=== PATIENT | female | born 1985 | race Caucasian/White ===

== ENCOUNTER 2017-04-13 04:11 | Emergency (ER) | payer MEDICAID ==
[2017-04-13] MEDS ORDERED: Albuterol/Ipratropium Neb 3 ML AERS HHN ONE ×2 (04:36→04:44)
--- NOTE | 2017-04-13 04:48 | ED Physician Chart ---
ED Chief Complaint/HPI - Patient Information Date Seen:: 04/13/17 Time Seen:: 04:42 Chief Complaint:: Cough for 2 weeks History of Present Illness:: 31 yo female cough for 2 weeks, non-productive, chest pain while coughing for 1 week, headache for 1 day. Denies any fever or chills. Came in to ER due to difficulty breathing and headache. Allergies:: Allergies Allergy/AdvReac Type Severity Reaction Status Date / Time No Known Allergies Allergy Verified 04/13/17 04:20 Vitals:: Vital Signs - 8 hr 04/13/17 04:20 Temp 97.3 F HR 82 RR 18 BP 122/86 O2 Sat % 99 ED Past Medical History - Past Medical History Past Medical History: No significant medical hx Family History: Heart disease (Father of [place]) Social History: Non Smoker, No Alcohol, No Drug Use Surgical History: None Psychiatricy History: None Family Medical History - Family Member Mother History Unknown: Yes Ethnicity: ED Physical Exam - Physical Examination Head: Atraumatic Eyes: Lids, conjuctiva normal, PERRL, EOMI Skin: No rash ENMT: External ears, nose nl Neck: Nontender Other Respiratory comments:: Bibasal mild crackles Cardio Vascular: RRR, No murmur, gallop, rubs, NL S1 S2 GI: No tenderness/rebounding/guarding Extremities: No tenderness or effusion, Full ROM Neuro/Psych: Alert/oriented ED Labs/Radiology/EKG Results - Radiology Results Results: X ray: no infiltration, unremarkable ED Assessment - Assessment General Assessment: Bronchitis Assessment/Comments:: Chest X ray CBC, CMP, UA, urine test DuoNeb nebulizing x 1 ED Septic Shock - . Is Septic Shock (SBP<90, OR Lactate>4 mmol\L) present?: No - <6hrs of presentation: Vital Signs: Vital Signs - 8 hr 04/13/17 04:20 Temp 97.3 F HR 82 RR 18 BP 122/86 O2 Sat % 99 ED Reassessment (Disposition) - Reassessment Reassessment Condition:: Improved - Patient Disposition Discharge/Transfer:: Home ED Discharge Plan - Patient Disposition Prescriptions: Azithromycin [Zithromax] 250 mg PO UD #6 tab Instructions: Bronchitis, [id number] Additional Instructions: Follow up with primary care physician. Return to ED if symptoms worsen. Call 911 if experiencing chest pain. Take medications as prescribed.
[2017-04-13 05:00] LABS: % BASOPHILS 0.3 % (0.0-2.0); % EOSINOPHILS 3.7 % (0.0-5.0); % LYMPHOCYTES 36.5 % (20.0-50.0); % MONOCYTES 8.8 % (2.0-10.0); % NEUTROPHILS 50.7 % (40.0-80.0); HEMATOCRIT 36.5 % (41.0-60); HEMOGLOBIN 12.3 gm/dL (12-16); MEAN CELL VOLUME 90.7 fl (81-100); MEAN CORPUSCULAR HEMOGLOBIN 30.6 pg (27.0-31.0); MEAN CORPUSCULAR HGB CONC 33.7 pg (28.0-36.0); MEAN PLATELET VOLUME 11.1 fl; NEUTROPHILE ABSOLUTE 4.8 Th/cmm (1.8-8.0); PLATELET COUNT 231 Th/cmm (150-400); RED BLOOD COUNT 4.03 Mil/cmm (3.80-5.10); RED CELL DISTRIBUTION WIDTH 12.9 % (11.5-20.0); WHITE BLOOD COUNT 9.3 Th/cmm (4.8-10.8)
[2017-04-13 05:12] LABS: ALB/GLOB RATIO 1.2 (1.0-1.8); ALKALINE PHOSPHATASE 60 U/L (34-104); ANION GAP 8.8 (7.0-16.0); BILIRUBIN,TOTAL 0.5 mg/dL (0.3-1.0); BUN - UREA NITROGEN 20 mg/dL (7-25); BUN/CREATININE RATIO 33.3; CALCIUM SERUM 8.7 mg/dL (8.6-10.3); CARBON DIOXIDE 24.9 mEq/L (21.0-31.0); CHLORIDE 106 mEq/L (98-107); CREATININE - SERUM 0.6 mg/dL (0.6-1.2); GLUCOSE 109 mg/dL (70-105); POTASSIUM SERUM 3.7 mEq/L (3.5-5.1); SGOT 23 U/L (13-39); SGPT/ALT 30 U/L (7-52); SODIUM SERUM 136 mEq/L (136-145)
[2017-04-13 05:40] LABS: URINE BILIRUBIN NEGATIVE (NEGATIVE); URINE BLOOD TRACE (NEGATIVE); URINE GLUCOSE (UA) NEGATIVE (NEGATIVE); URINE KETONE NEGATIVE (NEGATIVE); URINE PROTEIN NEGATIVE (NEGATIVE); URINE UROBILINOGEN 0.2 E.U./dL (0.2 - 1.0)
[2017-04-13 05:42] LABS: URINE COLOR YELLOW
[2017-04-13 05:46] LABS: URINE BACTERIA FEW /hpf (NONE SEEN); URINE EPITHELIAL CELLS MODERATE /lpf (FEW); URINE WBC 0-2 /hpf (0-5)
--- NOTE | 2017-04-13 07:59 | Diagnostic Imaging Report ---
CHEST X-RAY: AP view INDICATION: Cough COMPARISON: None FINDINGS: Slightly decreased lung bones are noted. There is no focal consolidation or pleural effusions heart size is at the upper limits of normal. The osseous structures demonstrate no acute abnormalities. IMPRESSION: Slightly decreased lung volumes. No focal consolidation identified.
== END 2017-04-13 06:54 | disposition home or self-care (01) ==
LOC: ER 04:11 → EDBD 04:11 → ER 06:54
DX: J20.9 Acute bronchitis, unspecified (principal); R07.9 Chest pain, unspecified
CPT/HCPCS: 36415-UA; 71010-TC; 80053-TC; 81001-TC; 81025-TC; 85025-TC; 94640